=== PATIENT | female | born 1975 | race Caucasian/White ===

== ENCOUNTER → 2016-12-18 | Outpatient (CLI) | payer OTHER ==
[~2016-12-18] MED LIST: CHOL100027 PO; CIPR-255 PO; CIPR1TAB10 PO; CYAN10005 SL; CYM/30 PO; DULO-24 PO; MISCCAP80 PO; OMEP40CA41 PO; ONDA8TAB6 PO
[2016-12-18 15:08] LABS: BASO % 0.7 %; BASO ABS # 0.04 K/uL (0-0.2); COMPLETE YES; EOS % 7.2 %; HEMATOCRIT 41.1 % (37-47); IG% 0.2 %; LYMPH % 37.2 %; LYMPH ABS # 2.23 K/uL (1.2-3.4); MEAN CELL VOLUME 95.1 fL (80-100); MEAN CORPUSCULAR HEMOGLOBIN 32.6 pg (25-34); MEAN CORPUSCULAR HGB CONC 34.3 g/dl (32-36); MEAN PLATELET VOLUME 9.8 fL (7.4-10.4); NEUT % 47.7 %; PLATELET COUNT 239 K/uL (130-400); RED BLOOD COUNT 4.32 M/uL (4.2-5.4)
[2016-12-18 15:09] LABS: ALT/SGPT 17 U/L (12-78); BLOOD UREA NITROGEN 15 mg/dl (7-18); BUN/CREATININE RATIO 15.7 (10-20); CALCIUM 8.9 mg/dl (8.5-10.1); CARBON DIOXIDE 26 mmol/L (21-32); CHLORIDE 107 mmol/L (98-107); CREATININE 0.95 mg/dl (0.60-1.20); GLUCOSE 86 mg/dl (70-99); POTASSIUM 3.9 mmol/L (3.5-5.1); SODIUM 142 mmol/L (136-145)
[2016-12-18 15:11] LABS: MANUAL MICROSCOPIC REQUIRED? NO; REVIEW REQ? NO; URINE APPEARANCE CLEAR (CLEAR); URINE BILIRUBIN NEG (NEG); URINE COLOR YELLOW; URINE EPITHELIAL CELL AUTO >30 /lpf (0-5); URINE NITRITE NEG (NEG); URINE SPECIFIC GRAVITY 1.027 (1.000-1.030); UROBILINOGEN NEG (NEG); ZZUR CULT IF INDIC CLEAN CATCH NO
[2016-12-18 15:12] LABS: ALB/GLOB RATIO 1.1 (0.9-2); ALKALINE PHOSPHATASE 54 U/L (45-117); AST/SGOT 8 U/L (15-37)
== END | disposition home or self-care (01) ==
LOC: C.LAB1850 13:37
PROVIDERS: ATTEND Nurse Practitioner Family
DX: R10.9 Unspecified abdominal pain (principal)

== ENCOUNTER → 2016-12-22 | Outpatient (CLI) | payer OTHER ==
--- NOTE | 2016-12-22 09:31 | DIAGNOSTIC IMAGING REPORT ---
Biliary ultrasound CLINICAL HISTORY: Right upper quadrant abdominal pain COMPARISON STUDY: 05/05/2016 FINDINGS: The pancreas appears sonographically normal. No hepatic masses are visualized. There is no ductal dilatation. The common buttock measures 3 mm. There is no right-sided hydronephrosis. No gallstones are visualized. There is a stable 1 mm gallbladder polyp IMPRESSION: Stable 1 mm gallbladder polyp. Otherwise normal study. Electronically signed by: Rl Altman M.D. 12/22/2016 9:29 AM Dictated Date/Time: 12/22/2016 9:28 AM
== END | disposition home or self-care (01) ==
LOC: C.ULTR 09:05
PROVIDERS: ATTEND Nurse Practitioner Family
DX: R10.9 Unspecified abdominal pain (principal); K82.4 Cholesterolosis of gallbladder

== ENCOUNTER 2017-03-16 19:46 | Emergency (ER) | payer OTHER ==
[~2017-03-16] VITALS: Ht 180.3 cm; Wt 64.0 kg
[2017-03-16 20:10] VITALS: Ht 180.3 cm; Wt 64.0 kg
[2017-03-16] MEDS ORDERED: PROMETHAZINE HCL INJ 25 MG/ML 1 ML VIAL IV STA (20:23)
[2017-03-16] MEDS ORDERED: SODIUM CHLORIDE 0.9% 1000ML 1,000 ML IV STA ×2 (20:23)
[2017-03-16] MEDS ORDERED: PROMETHAZINE HCL INJ 12.5 MG in SODIUM CHLORIDE 0.9% 50ML 50 ML IV SCH (20:23)
[2017-03-16] MEDS ORDERED: KETOROLAC TROMETHAMINE 30 MG/ML VIAL IV STA (20:23)
[2017-03-16] MEDS: MoRPHine SULFATE 4 MG/ML 1 ML CARP\\VIAL IV PRN ×2 (20:39→22:05)
[2017-03-16 20:51] LABS: BASO % 0.5 %; BASO ABS # 0.04 K/uL (0-0.2); COMPLETE YES; HEMATOCRIT 41.1 % (37-47); IG% 0.1 %; LYMPH % 28.9 %; LYMPH ABS # 2.29 K/uL (1.2-3.4); MEAN CELL VOLUME 94.3 fL (80-100); MEAN CORPUSCULAR HEMOGLOBIN 32.8 pg (25-34); MEAN CORPUSCULAR HGB CONC 34.8 g/dl (32-36); MEAN PLATELET VOLUME 9.6 fL (7.4-10.4); MONO % 6.3 %; NEUT % 61.2 %; PLATELET COUNT 257 K/uL (130-400); RED BLOOD COUNT 4.36 M/uL (4.2-5.4); WHITE BLOOD COUNT 7.93 K/uL (4.8-10.8)
--- NOTE | 2017-03-16 20:53 | DIAGNOSTIC IMAGING REPORT ---
CHEST ONE VIEW PORTABLE CLINICAL HISTORY: Abdominal pain COMPARISON STUDY: No previous studies for comparison. FINDINGS: The cardiac and mediastinal contours are normal. There is no evidence of focal pulmonary consolidation. There is no evidence of failure. No pleural effusions are visualized.[ No free intraperitoneal air is visualized IMPRESSION: No active disease in the chest. Electronically signed by: Rl lAtman M.D. 03/16/2017 8:51 PM Dictated Date/Time: 03/16/2017 8:51 PM
[2017-03-16] MEDS ORDERED: CYM/30 PO (20:55)
[2017-03-16] MEDS ORDERED: OMEP40CA41 PO (20:55)
[2017-03-16] MEDS ORDERED: CIPR1TAB10 PO (20:55)
[2017-03-16] MEDS ORDERED: MISCCAP80 PO (20:55)
[2017-03-16] MEDS ORDERED: CYAN10005 SL (20:55)
[2017-03-16] MEDS ORDERED: CHOL100027 PO (20:55)
[2017-03-16] MEDS ORDERED: ONDA8TAB6 PO (20:55)
[2017-03-16 21:08] LABS: URINE APPEARANCE CLEAR (CLEAR); URINE BILIRUBIN NEG (NEG); URINE COLOR YELLOW; URINE EPITHELIAL CELL AUTO >30 /lpf (0-5); URINE NITRITE NEG (NEG); URINE PH 6.5 (4.5-7.5); URINE SPECIFIC GRAVITY 1.012 (1.000-1.030); UROBILINOGEN NEG (NEG); ZZUR CULT IF INDIC CLEAN CATCH YES
[2017-03-16 21:10] LABS: BUN/CREATININE RATIO 12.7 (10-20); CALCIUM 9.1 mg/dl (8.5-10.1); CREATININE 0.74 mg/dl (0.60-1.20); POTASSIUM 3.5 mmol/L (3.5-5.1)
[2017-03-16 21:11] LABS: MANUAL MICROSCOPIC REQUIRED? NO; REVIEW REQ? NO
[2017-03-16 21:13] LABS: ALB/GLOB RATIO 1.3 (0.9-2)
[2017-03-16] MEDS ORDERED: CEFTRIAXONE SOD INJ 1 GM ADDVIAL IV STA (21:13)
--- NOTE | 2017-03-16 21:27 | EMERGENCY ROOM VISIT NOTE ---
History Report prepared by Lilliana: Nunu Mariscal Under the Supervision of: Dr. Kenneth Juarez M.D. First contact with patient: 20:18 Chief Complaint: ABDOMINAL PAIN Stated Complaint: EXTREME PAIN ON R SIDE ABD History of Present Illness The patient is a 41 year old female who presents to the Emergency Room with complaints of worsening RUQ abdominal pain starting today. She has gallbladder polyps which are being monitored. She has some pain usually, but it has worsened today. She currently rates her discomfort as an 8/10 in severity. She had some diarrhea a few days ago, but since has not had a bowel movement in several days. She has increased stress in her life and has not been eating well. She denies any fever, coughing, or congestion. She denies any recent falls. She has not taken anything for the pain. She has had kidney stones in the past, but the pain is different. She was diagnosed with a UTI today. She has had a tubal ligation. She still has her appendix. Source of History: patient Onset: today Position: abdomen (RUQ) Symptom Intensity: 8/10 Quality: other (pain) Timing: worsening Associated Symptoms: + diarrhea, No cough, No fevers Note: Pt reports not having a bowel movement in several days. Pt denies congestion. Review of Systems See HPI for pertinent positives & negatives. A total of 10 systems reviewed and were otherwise negative. Past Medical & Surgical Medical Problems: (1) Gallbladder polyp (2) Kidney stone Surgical Problems: (1) S/P tubal ligation Family History Cancer Social History Marital Status: Occupation Status: employed Current/Historical Medications Scheduled Cholecalciferol (Vitamin D 1000 Unit), 1,000 INTER.UNIT PO DAILY Ciprofloxacin Hcl (Cipro), 500 MG PO Q12 Ciprofloxacin Hcl (Cipro), 500 MG PO BID Cyanocobalamin (Vitamin B-12), 1,000 MCG SL DAILY Duloxetine HCl (Cymbalta), 1 CAP PO DAILY Omeprazole (Prilosec), 40 MG PO BID Probiotic Product (Probiotic), 1 CAP PO DAILY Scheduled PRN Ondansetron Hcl (Zofran), 8 MG PO Q6H PRN for Nausea Allergies Coded Allergies: Iodine (Verified Allergy, Unknown, 12/17/09) Adhesives (Verified Adverse Reaction, Intermediate, SKIN RED, 03/16/17) Physical Exam Vital Signs Date Time Temp Pulse Resp B/P Pulse Ox O2 Delivery O2 Flow Rate FiO2 03/16/17 23:03 36.7 74 18 118/84 98 03/16/17 22:10 74 18 137/88 98 03/16/17 20:10 36.7 92 18 137/95 96 Room Air Physical Exam GENERAL: Patient is in moderate distress secondary to pain. HEENT: No acute trauma, normocephalic atraumatic, mucous membranes moist, no nasal congestion, no scleral icterus. NECK: No stridor, no adenopathy, no meningismus, trachea is midline. LUNGS: Clear to auscultation bilaterally, no wheeze, no rhonchi, breath sounds equal. HEART: Without murmurs gallops or rubs, regular rate and rhythm. CHEST: Tender to the right lateral and anterior lower ribs. ABDOMEN: Soft, moderately tender in the RUQ, bowel sounds positive, no hernias, no peritonitis. EXTREMITIES: No cyanosis or edema, full range of motion of all the joints without pain or difficulty, no signs for acute trauma. NEUROLOGIC: Oriented x 3, no acute motor or sensory deficits, no focal weakness. SKIN: No rash, no jaundice, no diaphoresis. Medical Decision & Procedures ER Provider Diagnostic Interpretation: X ray results and stated below per my interpretation and radiologist interpretation. Other radiology results and stated below per my review and radiologist interpretation: CHEST ONE VIEW PORTABLE CLINICAL HISTORY: Abdominal pain COMPARISON STUDY: No previous studies for comparison. FINDINGS: The cardiac and mediastinal contours are normal. There is no evidence of focal pulmonary consolidation. There is no evidence of failure. No pleural effusions are visualized.[ No free intraperitoneal air is visualized IMPRESSION: No active disease in the chest. Electronically signed by: Rl Altman M.D. 03/16/2017 8:51 PM Dictated Date/Time: 03/16/2017 8:51 PM BILIARY ULTRASOUND CLINICAL HISTORY: Abdominal pain COMPARISON STUDY: 12/22/2016 FINDINGS: The pancreas appears normal as visualized. The liver appears sonographically normal. There is no right-sided hydronephrosis. There is a stable tiny gallbladder polyp. No calculi are visualized. There is no ductal dilatation. The common bile duct measures 4 mm. IMPRESSION: Stable tiny gallbladder polyp. Otherwise normal study Electronically signed by: Rl Altman M.D. 03/16/2017 9:59 PM Dictated Date/Time: 03/16/2017 9:56 PM Laboratory Results 03/16/17 20:40 Red Blood Count 4.36, Mean Corpuscular Volume 94.3, Mean Corpuscular Hemoglobin 32.8, Mean Corpuscular Hemoglobin Concent 34.8, Mean Platelet Volume 9.6, Neutrophils (%) (Auto) 61.2, Lymphocytes (%) (Auto) 28.9, Monocytes (%) (Auto) 6.3, Eosinophils (%) (Auto) 3.0, Basophils (%) (Auto) 0.5, Neutrophils # (Auto) 4.85, Lymphocytes # (Auto) 2.29, Monocytes # (Auto) 0.50, Eosinophils # (Auto) 0.24, Basophils # (Auto) 0.04 03/16/17 20:40 Test 03/16/17 20:40 White Blood Count 7.93 K/uL (4.8-10.8) Red Blood Count 4.36 M/uL (4.2-5.4) Hemoglobin 14.3 g/dL (12.0-16.0) Hematocrit 41.1 % (37-47) Mean Corpuscular Volume 94.3 fL (80-100) Mean Corpuscular Hemoglobin 32.8 pg (25-34) Mean Corpuscular Hemoglobin Concent 34.8 g/dl (32-36) Platelet Count 257 K/uL (130-400) Mean Platelet Volume 9.6 fL (7.4-10.4) Neutrophils (%) (Auto) 61.2 % Lymphocytes (%) (Auto) 28.9 % Monocytes (%) (Auto) 6.3 % Eosinophils (%) (Auto) 3.0 % Basophils (%) (Auto) 0.5 % Neutrophils # (Auto) 4.85 K/uL (1.4-6.5) Lymphocytes # (Auto) 2.29 K/uL (1.2-3.4) Monocytes # (Auto) 0.50 K/uL (0.11-0.59) Eosinophils # (Auto) 0.24 K/uL (0-0.5) Basophils # (Auto) 0.04 K/uL (0-0.2) RDW Standard Deviation 43.2 fL (36.4-46.3) RDW Coefficient of Variation 12.4 % (11.5-14.5) Immature Granulocyte % (Auto) 0.1 % Immature Granulocyte # (Auto) 0.01 K/uL (0.00-0.02) Urine Color YELLOW Urine Appearance CLEAR (CLEAR) Urine pH 6.5 (4.5-7.5) Urine Specific [place] 1.012 (1.000-1.030) Urine Protein NEG (NEG) Urine Glucose (UA) NEG (NEG) Urine Ketones 1+ (NEG) Urine Occult Blood NEG (NEG) Urine Nitrite NEG (NEG) Urine Bilirubin NEG (NEG) Urine Urobilinogen NEG (NEG) Urine Leukocyte Esterase SMALL (NEG) Urine WBC (Auto) 10-30 /hpf (0-5) Urine RBC (Auto) 5-10 /hpf (0-4) Urine Hyaline Casts (Auto) 1-5 /lpf (0-5) Urine Epithelial Cells (Auto) >30 /lpf (0-5) Urine Bacteria (Auto) 4+ (NEG) Anion Gap 7.0 mmol/L (3-11) Est Creatinine Clear Calc Drug Dose 99.0 ml/min Estimated GFR () 115.0 Estimated GFR (Non- 99.2 BUN/Creatinine Ratio 12.7 (10-20) Calcium Level 9.1 mg/dl (8.5-10.1) Total Bilirubin 0.5 mg/dl (0.2-1) Aspartate Amino Transf (AST/SGOT) 8 U/L (15-37) Alanine Aminotransferase (ALT/SGPT) 14 U/L (12-78) Alkaline Phosphatase 54 U/L (45-117) Total Protein 6.7 gm/dl (6.4-8.2) Albumin 3.8 gm/dl (3.4-5.0) Globulin 2.9 gm/dl (2.5-4.0) Albumin/Globulin Ratio 1.3 (0.9-2) Lipase 155 U/L (73-393) Laboratory results reviewed by me. Medications Administered Medications (Trade) Dose Ordered Sig/Lei Route Start Time Stop Time Status Last Admin Dose Admin Sodium Chloride (Nss 1000ml) 1,000 ml @ 999 mls/hr Q1H1M STAT IV 03/16/17 20:23 03/16/17 21:23 DC 03/16/17 20:23 999 MLS/HR Morphine Sulfate (MoRPHine SULFATE INJ) 4 mg Q30M PRN IV 03/16/17 20:30 03/30/17 20:29 03/16/17 22:05 4 MG Ketorolac Tromethamine 30 mg 30 mg NOW STAT IV 03/16/17 20:23 03/16/17 20:25 DC 03/16/17 20:40 30 MG Promethazine HCl/ Sodium Chloride (Phenergan Inj/ Nss 50ml) 50.5 ml @ 202 mls/hr TODAY@2022 IV 03/16/17 20:23 03/16/17 20:45 DC 03/16/17 22:05 202 MLS/HR Ceftriaxone Sodium (Rocephin Inj) 1 gm NOW STAT IV 03/16/17 21:13 03/16/17 21:14 DC 03/16/17 22:05 1 GM Ciprofloxacin (Cipro Tab) 500 mg NOW STAT PO 03/16/17 22:09 03/16/17 22:11 DC 03/16/17 22:33 500 MG Oxycodone HCl (Roxicodone Immediate Rel 5MG Home Pack) 1 homepack UD ONCE PO 03/16/17 23:00 03/16/17 23:01 DC 03/16/17 22:51 1 HOMEPACK ED Course 2020: The patient was evaluated in room A12B. A complete history and physical exam was performed. 2022: Promethazine HCl 12.5 mg/Sodium Chloride 50.5 ml @ 202 mls/hr IV, Toradol Inj 30 mg IV, NSS 1000 ml @ 999 mls/hr IV, NSS 1000 ml @ 200 mls/hr IV. 2029: Morphine Sulfate 4 mg IV. 2112: Rocephin Inj 1 gm IV. 2205: I reevaluated the patient. She is resting comfortably. She would like to go home. 2208: Ciprofloxacin 500 mg PO. 2250: Upon reexamination the patient appeared to have improvement of her symptoms. I discussed results and discharge instructions: she verbalized understanding and agreement. The patient is ready for discharge. 0: Oxycodone HCl 1 homepack PO. Medical Decision Differential diagnosis: pneumonia, biliary colic, acute cholecystitis, renal colic, pyelonephritis, UTI, renal failure, hepatitis, pancreatitis, dehydration. There is no leukocytosis or concerning anemia. No significant electrolyte abnormality, kidney failure, hepatitis or pancreatitis. Urinalysis does show evidence for infection. Urine culture is pending. Chest film shows no pneumonia or free air. Gallbladder ultrasound shows a polyp, no evidence for acute cholecystitis. The right kidney did not show evidence for hydronephrosis. The patient received IV Toradol, IV saline, IV ceftriaxone. She was given IV Phenergan and IV morphine. She eventually received a dose of oral Cipro. The patient was offered admission to the hospital but does want to go home. I do think she has an acute pyelonephritis. She is being discharged on Cipro, she can stay hydrated and rest. She was encouraged to return if not improving or if feeling worse. Impression Primary Impression: Right flank pain Additional Impression: Pyelonephritis Scribe Attestation The scribe's documentation has been prepared under my direction and personally reviewed by me in its entirety. I confirm that the note above accurately reflects all work, treatment, procedures, and medical decision making performed by me. Departure Information Dispostion Home / Self-Care Prescriptions Ciprofloxacin Hcl (CIPRO) 500 Mg Tab 500 MG PO BID, #20 TAB Prov: Kenneth Juarez M.D. 03/16/17 Referrals Jose Carlos Sanders III, CRNP (PCP) Forms Call Back Authorization, HOME CARE DOCUMENTATION FORM, IMPORTANT VISIT INFORMATION Patient Instructions My [facility] Additional Instructions cipro 2x per day for 10 days oxy ir 1 tab edna 4 hours for severe pain fluids rest motrin or tylenol for pain or fever if needed follow with darell reyes this upcoming week return for worsening symptoms or if not improving as we discussed Problem Qualifiers
--- NOTE | 2017-03-16 22:01 | DIAGNOSTIC IMAGING REPORT ---
BILIARY ULTRASOUND CLINICAL HISTORY: Abdominal pain COMPARISON STUDY: 12/22/2016 FINDINGS: The pancreas appears normal as visualized. The liver appears sonographically normal. There is no right-sided hydronephrosis. There is a stable tiny gallbladder polyp. No calculi are visualized. There is no ductal dilatation. The common bile duct measures 4 mm. IMPRESSION: Stable tiny gallbladder polyp. Otherwise normal study Electronically signed by: Rl Altman M.D. 03/16/2017 9:59 PM Dictated Date/Time: 03/16/2017 9:56 PM
[2017-03-16] MEDS ORDERED: CIPROFLOXACIN 500 MG TAB PO STA (22:09)
[2017-03-16] MEDS ORDERED: CIPR-255 PO (22:52)
[2017-03-16] MEDS ORDERED: OXYCODONE IR HOME PACK PO ONE (23:00)
[2017-03-16 23:03] VITALS: BP 118/84; PULSE 74; TEMP 36.7; O2SAT 98
== END 2017-03-16 23:03 | disposition home or self-care (01) ==
LOC: C.EDB 19:48 → C.EDA 23:03
DX: R10.11 Right upper quadrant pain (principal); N10 Acute pyelonephritis; K82.8 Other specified diseases of gallbladder; N39.0 Urinary tract infection, site not specified; Z98.51 Tubal ligation status; Z87.442 Personal history of urinary calculi

== ENCOUNTER → 2017-03-16 | Outpatient (CLI) | payer OTHER ==
[2017-03-16 10:13] LABS: BASO ABS # 0.06 K/uL (0-0.2); COMPLETE YES; EOS % 4.4 %; HEMATOCRIT 44.7 % (37-47); IG% 0.2 %; LYMPH % 20.5 %; LYMPH ABS # 1.25 K/uL (1.2-3.4); MEAN CELL VOLUME 96.8 fL (80-100); MEAN CORPUSCULAR HEMOGLOBIN 33.3 pg (25-34); MEAN CORPUSCULAR HGB CONC 34.5 g/dl (32-36); MEAN PLATELET VOLUME 9.9 fL (7.4-10.4); MONO % 6.9 %; PLATELET COUNT 283 K/uL (130-400); RED BLOOD COUNT 4.62 M/uL (4.2-5.4); WHITE BLOOD COUNT 6.11 K/uL (4.8-10.8)
[2017-03-16 10:53] LABS: ALT/SGPT 17 U/L (12-78); AST/SGOT 9 U/L (15-37); BLOOD UREA NITROGEN 11 mg/dl (7-18); BUN/CREATININE RATIO 12.9 (10-20); CALCIUM 9.4 mg/dl (8.5-10.1); CARBON DIOXIDE 33 mmol/L (21-32); CHLORIDE 104 mmol/L (98-107); CREATININE 0.88 mg/dl (0.60-1.20); GLUCOSE 88 mg/dl (70-99); MAGNESIUM 2.2 mg/dl (1.8-2.4); POTASSIUM 3.6 mmol/L (3.5-5.1); SODIUM 141 mmol/L (136-145)
[2017-03-16 11:05] LABS: ALB/GLOB RATIO 1.2 (0.9-2); ALKALINE PHOSPHATASE 58 U/L (45-117); FERRITIN 30.6 ng/ml (8.0-388.0)
[2017-03-16 12:18] LABS: URINE APPEARANCE CLEAR (CLEAR); URINE BILIRUBIN NEG (NEG); URINE COLOR YELLOW; URINE EPITHELIAL CELL AUTO >30 /lpf (0-5); URINE NITRITE NEG (NEG); URINE PH 5.5 (4.5-7.5); URINE SPECIFIC GRAVITY 1.009 (1.000-1.030); UROBILINOGEN NEG (NEG); ZZUR CULT IF INDIC CLEAN CATCH YES
[2017-03-16 12:28] LABS: MANUAL MICROSCOPIC REQUIRED? NO; REVIEW REQ? NO
== END | disposition home or self-care (01) ==
LOC: C.LAB1850 09:29
PROVIDERS: ATTEND Nurse Practitioner Family
DX: E55.9 Vitamin D deficiency, unspecified (principal); E53.8 Deficiency of other specified B group vitamins; F41.9 Anxiety disorder, unspecified; R25.1 Tremor, unspecified; R63.4 Abnormal weight loss

== ENCOUNTER 2017-07-05 09:55 | Emergency (ER) | payer OTHER ==
[~2017-07-05] VITALS: Ht 170.2 cm; Wt 50.0 kg
[~2017-07-05 09:55] MED LIST changes: -DULO-24 PO
[2017-07-05 10:07] VITALS: TEMP 36.7; Ht 170.2 cm; Wt 50.0 kg
[2017-07-05] MEDS ORDERED: LORAZEPAM 1 MG TAB SL STA (10:50)
[2017-07-05 11:02] LABS: URINE APPEARANCE CLEAR (CLEAR); URINE BILIRUBIN NEG (NEG); URINE COLOR YELLOW; URINE NITRITE NEG (NEG); URINE SPECIFIC GRAVITY 1.029 (1.000-1.030); UROBILINOGEN NEG (NEG)
[2017-07-05 11:04] LABS: PREG INTERNAL NEGATIVE QC NEG CLEAR BACKGROUND; PREG INTERNAL POSITIVE QC POS CONTROL LINE
[2017-07-05 11:06] LABS: MANUAL MICROSCOPIC REQUIRED? NO; REVIEW REQ? NO
--- NOTE | 2017-07-05 11:16 | DIAGNOSTIC IMAGING REPORT ---
CHEST ONE VIEW PORTABLE HISTORY: Mood Disorder COMPARISON: Chest 03/16/2017. FINDINGS: The lungs are clear. Cardiac silhouette is normal in size. No pleural effusions. No pneumothorax. IMPRESSION: No acute process. Electronically signed by: Renaldo Petersen M.D. 07/05/2017 11:15 AM Dictated Date/Time: 07/05/2017 11:12 AM
[2017-07-05 11:25] LABS: BENZODIAZEPINE, URINE NEG (NEG); COCAINE,URINE NEG (NEG); PHENCYCLIDINE, URINE NEG (NEG)
[2017-07-05 12:02] LABS: BASO % 0.6 %; BASO ABS # 0.04 K/uL (0-0.2); COMPLETE YES; EOS % 3.6 %; HEMATOCRIT 43.3 % (37-47); IG% 0.2 %; LYMPH % 28.5 %; MEAN CELL VOLUME 94.5 fL (80-100); MEAN CORPUSCULAR HEMOGLOBIN 33.4 pg (25-34); MEAN CORPUSCULAR HGB CONC 35.3 g/dl (32-36); MEAN PLATELET VOLUME 9.4 fL (7.4-10.4); MONO % 6.6 %; NEUT % 60.5 %; PLATELET COUNT 259 K/uL (130-400); RED BLOOD COUNT 4.58 M/uL (4.2-5.4); WHITE BLOOD COUNT 6.32 K/uL (4.8-10.8)
[2017-07-05] MEDS ORDERED: DULO-24 PO (12:17)
[2017-07-05 12:18] LABS: BUN/CREATININE RATIO 21.5 (10-20); CALCIUM 9.1 mg/dl (8.5-10.1); CREATININE 0.92 mg/dl (0.60-1.20)
[2017-07-05 12:29] LABS: THYROID STIMULATING HORMONE 1.1 uIu/ml (0.300-4.500)
--- NOTE | 2017-07-05 14:35 | EMERGENCY ROOM VISIT NOTE ---
History Report prepared by Lililana: Clare Raymond Under the Supervision of: Kb ShawO. First contact with patient: 10:15 Chief Complaint: MENTAL HEALTH EVALUATION Stated Complaint: EMOTIONAL ? History of Present Illness The patient is a 41 year old female who presents to the Emergency Room for a mental health evaluation. The patient states, "I am having a nervous breakdown. " She states that she has been having trouble with her for the last 4 months. It has gotten worse and she admits to thoughts of harming herself throughout today. She states that she came to the ED so that she would not hurt herself. She says, "I just wanted to go away." She notes she does not trust herself at home. The patient denies concrete plan to hurt herself. She has tried to hurt herself in the past, but not within the past month. She has not been eating, drinking, or sleeping much over the past 3 days. She denies any HI or drug or alcohol use. Pt denies headache, change in vision, fevers, chest pain , shortness of breath, nausea, vomiting, diarrhea, and pain with urination. She denies any auditory or visual hallucinations. 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 Pt reports SI without plan. Review of Systems See HPI for pertinent positives & negatives. A total of 10 systems reviewed and were otherwise negative. Past Medical & Surgical Medical Problems: (1) Gallbladder polyp (2) Kidney stone Surgical Problems: (1) S/P tubal ligation Family History Cancer Social History Smoking Status: Current Every Day Smoker Marital Status: Housing Status: lives with significant other Occupation Status: employed Current/Historical Medications Scheduled Cholecalciferol (Vitamin D 1000 Unit), 1,000 INTER.UNIT PO DAILY Cyanocobalamin (Vitamin B-12), 1,000 MCG SL DAILY Duloxetine HCl (Cymbalta), 40 MG PO DAILY Omeprazole (Prilosec), 40 MG PO BID Probiotic Product (Probiotic), 1 CAP PO DAILY Allergies Coded Allergies: Iodine (Verified Allergy, Unknown, 12/17/09) Adhesives (Verified Adverse Reaction, Intermediate, SKIN RED, 03/16/17) Physical Exam Vital Signs Date Time Temp Pulse Resp B/P (MAP) Pulse Ox O2 Delivery O2 Flow Rate FiO2 07/05/17 17:54 93 18 136/93 98 Room Air 07/05/17 12:12 76 18 115/80 95 Room Air 07/05/17 10:07 36.7 145 24 156/146 95 Room Air Physical Exam GENERAL: alert, laying on left side, shaking, well nourished, moderate distress , non-toxic EYE EXAM: conjunctiva injected with tears in bilateral eyes OROPHARYNX: no exudate, no erythema, lips, buccal mucosa, and tongue normal and mucous membranes are moist NECK: supple, no nuchal rigidity, no adenopathy, non-tender LUNGS: Clear to auscultation. Normal chest wall mechanics HEART: no murmurs, S1 normal and S2 normal ABDOMEN: abdomen soft, non-tender, normo-active bowel sounds, no masses, no rebound or guarding. BACK: Back is symmetrical on inspection and there is no deformity, no midline tenderness, no CVA tenderness. SKIN: no rashes and no bruising UPPER EXTREMITIES: upper extremities are grossly normal. LOWER EXTREMITIES: No pitting edema. NEURO EXAM: Normal sensorium, cranial nerves II-XII grossly intact, normal speech, no gross weakness of arms, no gross weakness of legs. PSYCH: Admits to thoughts of self harm but denies a clear plan. Admits to lack of self-worth and nothing left to live for. Denies auditory and visual hallucinations. Medical Decision & Procedures ER Provider Diagnostic Interpretation: Radiology results as stated below per my review and the radiologist's interpretation: CHEST ONE VIEW PORTABLE HISTORY: Mood Disorder COMPARISON: Chest 03/16/2017. FINDINGS: The lungs are clear. Cardiac silhouette is normal in size. No pleural effusions. No pneumothorax. IMPRESSION: No acute process. Electronically signed by: Renaldo Petersen M.D. 07/05/2017 11:15 AM Dictated Date/Time: 07/05/2017 11:12 AM Laboratory Results 07/05/17 11:30 Red Blood Count 4.58, Mean Corpuscular Volume 94.5, Mean Corpuscular Hemoglobin 33.4, Mean Corpuscular Hemoglobin Concent 35.3, Mean Platelet Volume 9.4, Neutrophils (%) (Auto) 60.5, Lymphocytes (%) (Auto) 28.5, Monocytes (%) (Auto) 6.6, Eosinophils (%) (Auto) 3.6, Basophils (%) (Auto) 0.6, Neutrophils # (Auto) 3.82, Lymphocytes # (Auto) 1.80, Monocytes # (Auto) 0.42, Eosinophils # (Auto) 0.23, Basophils # (Auto) 0.04 07/05/17 11:30 Test 07/05/17 10:33 07/05/17 11:29 07/05/17 11:30 Urine Color YELLOW Urine Appearance CLEAR (CLEAR) Urine pH 5.0 (4.5-7.5) Urine Specific [place] 1.029 (1.000-1.030) Urine Protein NEG (NEG) Urine Glucose (UA) NEG (NEG) Urine Ketones NEG (NEG) Urine Occult Blood NEG (NEG) Urine Nitrite NEG (NEG) Urine Bilirubin NEG (NEG) Urine Urobilinogen NEG (NEG) Urine Leukocyte Esterase NEG (NEG) Urine Test NEG (NEG) Urine Opiates Screen NEG (NEG) Urine Methadone, Qualitative NEG (NEG) Urine Barbiturates NEG (NEG) Urine Phencyclidine (PCP) Level NEG (NEG) Ur Amphetamine/Methamphetamine NEG (NEG) MDMA (Ecstasy) Screen NEG (NEG) Urine Benzodiazepines Screen NEG (NEG) Urine Cocaine Metabolite NEG (NEG) Urine Marijuana (THC) NEG (NEG) Bedside Glucose 92 mg/dl (70-90) White Blood Count 6.32 K/uL (4.8-10.8) Red Blood Count 4.58 M/uL (4.2-5.4) Hemoglobin 15.3 g/dL (12.0-16.0) Hematocrit 43.3 % (37-47) Mean Corpuscular Volume 94.5 fL (80-100) Mean Corpuscular Hemoglobin 33.4 pg (25-34) Mean Corpuscular Hemoglobin Concent 35.3 g/dl (32-36) Platelet Count 259 K/uL (130-400) Mean Platelet Volume 9.4 fL (7.4-10.4) Neutrophils (%) (Auto) 60.5 % Lymphocytes (%) (Auto) 28.5 % Monocytes (%) (Auto) 6.6 % Eosinophils (%) (Auto) 3.6 % Basophils (%) (Auto) 0.6 % Neutrophils # (Auto) 3.82 K/uL (1.4-6.5) Lymphocytes # (Auto) 1.80 K/uL (1.2-3.4) Monocytes # (Auto) 0.42 K/uL (0.11-0.59) Eosinophils # (Auto) 0.23 K/uL (0-0.5) Basophils # (Auto) 0.04 K/uL (0-0.2) RDW Standard Deviation 45.4 fL (36.4-46.3) RDW Coefficient of Variation 13.1 % (11.5-14.5) Immature Granulocyte % (Auto) 0.2 % Immature Granulocyte # (Auto) 0.01 K/uL (0.00-0.02) Anion Gap 6.0 mmol/L (3-11) Est Creatinine Clear Calc Drug Dose 62.2 ml/min Estimated GFR () 88.4 Estimated GFR (Non- 76.3 BUN/Creatinine Ratio 21.5 (10-20) Calcium Level 9.1 mg/dl (8.5-10.1) Total Bilirubin 0.4 mg/dl (0.2-1) Direct Bilirubin 0.1 mg/dl (0-0.2) Aspartate Amino Transf (AST/SGOT) 15 U/L (15-37) Alanine Aminotransferase (ALT/SGPT) 19 U/L (12-78) Alkaline Phosphatase 72 U/L (45-117) Total Protein 7.6 gm/dl (6.4-8.2) Albumin 3.9 gm/dl (3.4-5.0) Thyroid Stimulating Hormone (TSH) 1.100 uIu/ml (0.300-4.500) Ethyl Alcohol mg/dL < 3.0 mg/dl (0-3) Laboratory results per my review. Medications Administered Medications (Trade) Dose Ordered Sig/Lei Route Start Time Stop Time Status Last Admin Dose Admin Lorazepam (Ativan Tab) 1 mg NOW STAT SL 07/05/17 10:50 07/05/17 10:51 DC 07/05/17 11:20 1 MG Acetaminophen (Tylenol Tab) 1,000 mg NOW STAT PO 07/05/17 17:17 07/05/17 17:18 DC 07/05/17 17:25 1,000 MG ED Course ED COURSE: Vital signs were reviewed and showed hypertensive and tachycardic. The patients medical record was reviewed The above diagnostic studies were performed and reviewed. ED treatments and interventions as stated above. 1015: The patient was evaluated in room A8. A complete history and physical examination was performed. 1050: Lorazepam 1 mg SL 1500: The patient is agreeable to inpatient treatment. 1603: After a long conversation with psych, both [facility] and myself feel as though the patient is a danger to herself. A 302 petition will be completed. [facility] was called. The patient's arrived in the ED and is at the bedside screaming profanities stating that he will protect her with his life. 1630: The [email or web address] are at bedside. The 302 warrant has been sent over. 1700: 302 was singed 1800: Pt and family/Elinor updated at bedside. 1805: Pt signed out to Dr. Floers awaiting placement Medical Decision Differential diagnosis: Etiologies such as mood disorder, infection, hypoglycemia, electrolyte abnormalities, cardiac sources, intracerebral event, toxicologic, neurologic, as well as others were entertained. Patient is a 41-year-old female who presents the ER stating that she feels unsafe at home because she is going to harm her self. Admits to thoughts of self harm but denies a clear plan. Admits to lack of self-worth and nothing left to live for. Denies auditory and visual hallucinations. Admits to depression. I asked her about her son and she is profanity stating that he is worthless. All of her symptoms focused around her and family. Labs were obtained and CBC along with BMP, LFTs, bilirubin and TSH were unremarkable. Urine and were negative. Tox was negative. Chest x- ray was unremarkable. Patient was medically stable. Following being evaluated by [facility] liaison Morgan who agrees that she is likely danger to herself and would benefit from admission I reevaluated the patient. Upon entering the room was at bedside cursing and using profanities stating why he wasn't called and why we are holding her against her will. At no point has she asked to leave while she was here. At no point did she asked us to call her . While I was at bedside I asked her if she was still agreeable to staying. Prior to me entering the room she had changed her mind when she found out that [facility] is full and wanted to go home. She states that she does not want to go out to this area. I informed her that the [place] is only 15 minutes away and re-asked the question at which point the became irate and verbally threatening. During my discussion with her he was answering questions for her and appeared to be intimidating her. I eventually left the room to de-escalate the situation and they called the police. They have been present since then. Patient has been cooperative. 302 warrant was signed following evaluation by [facility] delegate. I had a long conversation with Elinor who is the patient's sister. She is a nurse. I explained at length my concerns for the patient and the lack of social support at home and placing her back into a situation which was giving her/causing her thoughts of self-harm and felt unsafe. Especially when she is in a fragile state with the feeling of lack of self worth, helplessness and severe depression. Patient was updated at bedside. Patient was signed out to Dr. Flores awaiting placement. Medication Reconcilliation Current Medication List: was personally reviewed by me Blood Pressure Screening Patient's blood pressure: Elevated blood pressure Blood pressure disposition: Elevated BP felt to be situational Impression Primary Impression: Mood disorder Additional Impression: Suicidal thoughts Scribe Attestation The scribe's documentation has been prepared under my direction and personally reviewed by me in its entirety. I confirm that the note above accurately reflects all work, treatment, procedures, and medical decision making performed by me. Departure Information Dispostion Still a Patient Referrals No Doctor, Assigned (PCP) Patient Instructions My [facility] Problem Qualifiers
[2017-07-05] MEDS ORDERED: ACETAMINOPHEN 500 MG TAB PO STA (17:17)
[2017-07-05 20:52] VITALS: BP 133/89; PULSE 99; O2SAT 97
--- NOTE | 2017-07-05 23:29 | EMERGENCY ROOM VISIT NOTE ---
ED Visit Note Patient was signed out to me awaiting placement. She was accepted at the [facility]. She was transported there.
== END 2017-07-05 20:51 ==
LOC: C.EDB 09:57 → C.EDA 20:51
DX: F39 Unspecified mood [affective] disorder (principal); R45.851 Suicidal ideations; Z87.442 Personal history of urinary calculi; Z98.51 Tubal ligation status; Z80.9 Family history of malignant neoplasm, unspecified; F17.210 Nicotine dependence, cigarettes, uncomplicated; Z79.899 Other long term (current) drug therapy